=== PATIENT | male | born 1940 | race Caucasian/White ===

== ENCOUNTER 2017-04-26 06:51 | Day surgery (SDC) | payer MEDICARE, BC ==
[~2017-04-26 06:51] MED LIST: ACETAMINOPHEN 1,000 MG/100 ML BTL IV ONE; CEFAZOLIN 1 Gram 1 GM/50 ML BAG IVPB ONE
[2017-04-26] MEDS ORDERED: MIDAZOLAM HCL 2MG/2ML VIAL IV ONE (06:52)
[2017-04-26] MEDS ORDERED: ONDANSETRON HCL IV 4 MG/2 ML VIAL IVP ONE (06:52)
[2017-04-26] MEDS ORDERED: EPHEDRINE SULFATE 50 MG/ML ML IV ONE (06:52)
[2017-04-26] MEDS ORDERED: PROPOFOL 10 MG/ML VIAL IV ONE (06:52)
[2017-04-26] MEDS ORDERED: METOCLOPRAMIDE HCL 10 MG/2 ML VIAL IVP ONE (06:52)
[2017-04-26] MEDS ORDERED: HYDROMORPHONE HCL 2 MG/ML VIAL IV ONE (06:52)
[2017-04-26] MEDS ORDERED: HYDROCODONE/APAP 5/325MG TABLET PO ONE (06:52)
[2017-04-26] MEDS ORDERED: BUPIVACAINE 0.75% W/EPI MPF 30ML VIAL IVP ONE (06:52)
[2017-04-26] MEDS ORDERED: LIDOCAINE 2% MDV (20MG/ML) 20ML VIAL IV ONE (06:52)
[2017-04-26 07:28] LABS: BASO % 0.6 % (0-6); EOS % 4.3 % (0-6); GRAN % 63.7 % (47-80); HEMATOCRIT 38.8 % (42.0-52.0); HEMOGLOBIN 12.5 gm/dl (14.0-18.0); LYMPH % 19.8 % (16-45); MEAN CELL VOLUME 87.8 fl (81-97); MEAN CORPUSCULAR HGB CONC 32.2 g/dl (32-36); MEAN PLATELET VOLUME 9.4 fl (7.4-10.4); MONO % 11.6 % (0-9); PLATELET COUNT 233 K/uL (130-400); RED BLOOD COUNT 4.42 M/uL (4.40-5.70); RED CELL DISTRIBUTION WIDTH 15.4 % (11.5-14.5); WHITE BLOOD COUNT W/O DIFF 7.2 K/uL (4.2-12.2)
[2017-04-26 07:29] LABS: MEAN CORPUSCULAR HEMOGLOBIN 28.2 pg (27-33)
[2017-04-26 07:35] LABS: BLOOD UREA NITROGEN 16 mg/dL (8-23); CREATININE 0.8 mg/dL (0.7-1.2); EST GLOMERULAR FILTRATION RATE > 60 mL/min; GLUCOSE,RANDOM 98 mg/dL (74-109)
--- NOTE | 2017-04-27 10:10 | Operative Note ---
DATE OF SURGERY: 04/26/2017 Surgeon: Gene Hilario DO PREOPERATIVE DIAGNOSIS: Reducible left inguinal hernia. POSTOPERATIVE DIAGNOSIS: Reducible left inguinal hernia, indirect with accompanying cord lipoma. OPERATION: Open left inguinal herniorrhaphy with mesh. PROCEDURE: The patient is a 68-year-old male who was brought to the operating room and placed in a supine position. General anesthesia was administered per the department of anesthesia. The patient's left inguinal region was shaved of hair and prepped and draped in a sterile fashion. At this time, adequate timeout was performed. He did receive preoperative antibiotics. At this time, the left inguinal region was anesthetized with a total of 10 mL of 0.25% Sensorcaine with epinephrine. A 4 cm oblique incision was made. This was carried down through the subcutaneous tissues through Cristina layer to the aponeurosis of the external oblique. A peter was made with a scalpel blade. This was enlarged through the superficial inguinal ring with Metzenbaum scissors. Care was taken not to injure the underlying ilioinguinal nerve or spermatic cord. At this time, superior and inferior flaps were developed and a Richmond was placed on the spermatic cord. This was dissected free from the underlying transversalis fascia and retracted laterally with a Kaleva drain. Floor was inspected and noted to be free of any direction herniation. Cremasteric fibers were taken down. There was a moderate size cord lipoma as well as indirect hernia sac. High ligations of each were done. At this time, a left-sided ProGrip mesh was obtained. This was placed in the floor of the inguinal canal with excellent overlap of the pubic tubercle. Sutures went at the level of the pubic tubercle, second portion of the inguinal ligament, and internal oblique aponeurosis. The lateral triangle was protected with the lateral aspect of the mesh. At this time, the aponeurosis was closed over the cord with 2-0 Vicryl, the Cristina layer was closed with 3-0 Vicryl, and skin was closed with 4-0 Vicryl. The patient was taken to the recovery room in satisfactory condition. FINDINGS AT THE TIME OF SURGERY: Left inguinal hernia, indirect with accompanying cord lipoma. CC: Dr. Scooter GRACIA
== END 2017-04-26 10:08 | disposition home or self-care (01) ==
LOC: SUR 06:51
PROVIDERS: ATTEND Surgery
DX: K40.90 Unilateral inguinal hernia, without obstruction or gangrene, not specified as recurrent (principal); E78.00 Pure hypercholesterolemia, unspecified; I10 Essential (primary) hypertension; D17.6 Benign lipomatous neoplasm of spermatic cord
CPT/HCPCS: 49505; 00830; 85025; 80048; J2405; J0690; J1170; J3490; J2765

== ENCOUNTER 2018-07-27 13:05 | Emergency (ER) | payer MEDICARE ==
[2018-07-27] MEDS ORDERED: ASPIRIN 81 MG CHEWABLE TABLET PO ONE (13:17)
[2018-07-27] MEDS ORDERED: MAGNESIUM HYDROXIDE/AL HYDROX 30 ML, LIDOCAINE VISC 2% 15ML 15 ML PO ONE ×2 (13:25)
--- NOTE | 2018-07-27 13:25 | Emergency Department Record ---
History of Present Illness - General Chief Complaint: Shortness of breath Stated Complaint: CHEST PRESSURE,JOB Time Seen by Provider: 07/27/18 13:16 Source: Patient, RN notes reviewed Mode of Arrival: Ambulatory - History of Present Illness Initial Comments: patient states couple of weeks of SOB and some chest pressure and thought to have constipation and took a laxative which cleaned him out but he still is SOB and some chest pressure. Onset/Timin -: Week(s) Consistency: Constant Improves With: Nothing Worsens With: Nothing Associated Symptoms: Denies other symptoms Treatments Prior to Arrival: None - Related Data Previous Rx's Medication Instructions Recorded Albuterol Sulfate [Proair Hfa] 1 - 2 puff IH .EVERY 4-6 HOURS PRN 07/27/18 #1 inhaler Allergies Allergy/AdvReac Type Severity Reaction Status Date / Time morphine AdvReac Severe hallucinati Verified 07/27/18 13:13 ons Travel Screening - Travel/Exposure Within Last 30 Days Have you traveled within the last 30 days?: No Review of Systems Reviewed: No additional complaints except as noted below Constitutional: Reports: As per HPI. Denies: Chills, Fever, Malaise, Night sweats, Weakness, Weight change Eyes: Reports: As per HPI. Denies: Eye discharge, Eye pain, Photophobia, Vision change ENT: Reports: As per HPI. Denies: Congestion, Dental pain, Ear pain, Epistaxis , Hearing loss, Throat pain Respiratory: Reports: As per HPI, Cough, Dyspnea. Denies: Hemoptysis, Stridor, Wheezes Cardiovascular: Reports: As per HPI, Chest pain. Denies: Arrhythmia, Dyspnea on exertion, Edema, Murmurs, Orthopnea, Palpitations, Paroxysmal nocturnal dyspnea, Rheumatic Fever, Syncope Endocrine: Reports: As per HPI. Denies: Fatigue, Heat or cold intolerance, Polydipsia, Polyuria Gastrointestinal: Reports: As per HPI. Denies: Abdominal pain, Constipation, Diarrhea, Hematemesis, Hematochezia, Melena, Nausea, Vomiting Genitourinary: Reports: As per HPI. Denies: Dysuria, Frequency, Hematuria, Incontinence, Retention, Testicular pain, Testicular mass, Urgency Musculoskeletal: Reports: As per HPI. Denies: Arthralgia, Back pain, Gout, Joint swelling, Myalgia, Neck pain Skin: Reports: As per HPI. Denies: Bruising, Change in color, Change in hair/ nails, Lesions, Pruritus, Rash Neurological: Reports: As per HPI. Denies: Abnormal gait, Confusion, Headache, Numbness, Paresthesias, Seizure, Tingling, Tremors, Vertigo, Weakness Psychiatric: Reports: As per HPI. Denies: Anxiety, Auditory hallucinations, Depression, Homicidal thoughts, Suicidal thoughts, Visual hallucinations Hematological/Lymphatic: Reports: As per HPI. 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) Hx Heart Attack: No Hx Hypertension: Yes (on metoprolol) Hx Coronary Artery Bypass Graft: Yes (quadruple bypass 2016) Hx Coronary Stent: Yes - NEURO Hx Neuro Disorders: No Hx Headaches: Yes - GI Hx GI Disorders: Yes Hx Diverticulitis: Yes Hx Reflux: Yes Hx Rectal Bleeding: Yes (occasional due to hemmorrhoids) Hx Ulcer: No - Hx Genitourinary Disorders: Yes Hx Prostate Problems: Yes (flomax-urinates alot at night) - ENDOCRINE Hx Endocrine Disorders: No - MUSCULOSKELETAL Hx Musculoskeletal Disorders: Yes Hx Arthritis: Yes - PSYCH Hx Psych Problems: No - HEMATOLOGY/ONCOLOGY Hx Hematology/Oncology Disorders: Yes Hx Cancer: Yes (skin left cheek) Family Medical History Any Significant Family History?: Yes Hx Alcohol Use: Mother Hx Cancer: Father *Cancer Comment: hodgkins Hx Liver Disease: Mother *Liver Comment: cirrhosis Physical Exam - General General Appearance: Alert, Oriented x3, Cooperative, No acute distress - Head Head exam: Normal inspection - Eye Eye exam: Normal appearance, PERRL Pupils: Normal accommodation - ENT ENT exam: Normal exam, Mucous membranes moist, Normal external ear exam, Normal orophraynx, TM's normal bilaterally Ear exam: Normal external inspection. negative: External canal tenderness Nasal Exam: Normal inspection. negative: Discharge, Sinus tenderness Mouth exam: Normal external inspection, Tongue normal Teeth exam: Normal inspection. negative: Dental caries Throat exam: Normal inspection. negative: Tonsillar erythema, Tonsillar exudate - Neck Neck exam: Normal inspection, Full ROM. negative: Tenderness - Respiratory Respiratory exam: Normal lung sounds bilaterally. negative: Respiratory distress - Cardiovascular Cardiovascular Exam: Regular rate, Normal rhythm, Normal heart sounds - GI/Abdominal GI/Abdominal exam: Soft, Normal bowel sounds. negative: Tenderness - Rectal Rectal exam: Deferred - exam: Deferred - Extremities Extremities exam: Normal inspection, Full ROM, Normal capillary refill. negative: Tenderness - Back Back exam: Reports: Normal inspection, Full ROM. Denies: Muscle spasm, Rash noted, Tenderness - Neurological Neurological exam: Alert, Normal gait, Oriented X3, Reflexes normal - Psychiatric Psychiatric exam: Normal affect, Normal mood - Skin Skin exam: Dry, Intact, Normal color, Warm Course second trop t ordered - Reevaluation(s) Reevaluation #1: chest xray negative 07/27/18 18:11 Medical Decision Making - Data Complexity MDM Data: Labs Ordered and/or Reviewed (trop t neg times one ), X-Ray Ordered and/or Reviewed (CTA of chest negative for PE,calcified granuloma of RLL , spleenic granuloma,coronary artery calcifications), EKG Ordered and/or Reviewed (nsr , no acute changes) - Lab Data Result diagrams: 07/27/18 13:15 07/27/18 13:15 Disposition Clinical Impression: SOB (shortness of breath) GERD (gastroesophageal reflux disease) Qualifiers: Esophagitis presence: with esophagitis Qualified Code(s): K21.0 - Gastro- esophageal reflux disease with esophagitis Disposition: Home, Self-Care Condition: (1) Good Instructions: Gastroesophageal Reflux Disease (ED) Additional Instructions: continue omeprazole 40 mg twice a day take mylanta 15 ml after meals and bedtime use inhaler 2 puffs every 4 hours Prescriptions: Albuterol Sulfate [Proair Hfa] 1 - 2 puff IH .EVERY 4-6 HOURS PRN #1 inhaler PRN Reason: Difficulty In Breathing Forms: Patient Portal Access Time of Disposition: 19:13 Quality - Quality Measures Quality Measures: N/A - Blood Pressure Screening Does Patient Have Any of the Following: No Blood Pressure Classification: Pre-Hypertensive BP Reading Systolic Measurement: 126 Diastolic Measurement: 78 Screening for High Blood Pressure: < Pre-Hypertensive BP, F/U Documented > [ [id number]] Pre-Hypertensive Follow-up Interventions: Referral to alternative/primary care provider.
[2018-07-27 13:50] LABS: HEMATOCRIT 40.9 % (42.0-52.0); HEMOGLOBIN 13.6 gm/dl (14.0-18.0); MEAN CELL VOLUME 91.1 fl (81-97); MEAN CORPUSCULAR HGB CONC 33.3 g/dl (32-36); MEAN PLATELET VOLUME 10.2 fl (7.4-10.4); PLATELET COUNT 210 K/uL (130-400); RED BLOOD COUNT 4.49 M/uL (4.40-5.70); RED CELL DISTRIBUTION WIDTH 15.3 % (11.5-14.5); WHITE BLOOD COUNT W/O DIFF 6.4 K/uL (4.2-12.2)
[2018-07-27 13:51] LABS: MEAN CORPUSCULAR HEMOGLOBIN 30.2 pg (27-33)
[2018-07-27 13:59] LABS: BLOOD UREA NITROGEN 15 mg/dL (8-23); CREATININE 0.9 mg/dL (0.7-1.2); EST GLOMERULAR FILTRATION RATE > 60 mL/min
[2018-07-27 14:02] LABS: GLUCOSE,RANDOM 138 mg/dL (74-109)
== END 2018-07-27 19:22 | disposition home or self-care (01) ==
LOC: ER 13:05
DX: K21.0 Gastro-esophageal reflux disease with esophagitis (principal); R06.02 Shortness of breath; R07.89 Other chest pain; R79.89 Other specified abnormal findings of blood chemistry; I10 Essential (primary) hypertension; Z87.891 Personal history of nicotine dependence; Z95.1 Presence of aortocoronary bypass graft
CPT/HCPCS: 99284 ×2; 85730; 80048; 84484; 85379; 85027; 71046; 71275; 93005; 93010; Q9967

== ENCOUNTER 2018-08-22 09:31 | Day surgery (SDC) | payer MEDICARE ==
[2018-08-22] MEDS ORDERED: PROPOFOL 10 MG/ML VIAL IV ONE (09:32)
[2018-08-22] MEDS ORDERED: LIDOCAINE 2% MDV (20MG/ML) 20ML VIAL IV ONE (09:32)
[2018-08-22] MEDS ORDERED: FENTANYL PF 100MCG/2ML VIAL IV ONE (09:32)
--- NOTE | 2018-08-23 08:31 | Operative Note ---
DATE OF SURGERY: 08/22/2018 OPERATION: ESOPHAGOGASTRODUODENOSCOPY. INDICATION: Recurring shortness of breath. The patient states that belching tends to improve his symptoms. There is a question of possible acid reflux disease or hiatal hernia. Upper endoscopy is performed at this time for further evaluation. ANESTHESIA: Intravenous sedation was administered by the department of anesthesiology and included Diprivan titrated to effect. PROCEDURE: Following informed consent from this alert individual, including a discussion of the risks and benefits of the procedure and an opportunity for the patient to ask questions, the patient was in the left lateral decubitus position. The Olympus [id number] video endoscope was inserted into the esophagus without resistance. The proximal esophagus had a normal appearance with normal folds and distensibility. The squamocolumnar junction was smooth, well defined, and approximated the diaphragmatic hiatus. The stomach was entered and found to be normal. The pylorus was patent. The duodenal bulb, sweep and descending duodenum were examined in a serial fashion and found to be normal as well. The endoscope was then drawn back into the body of the stomach. Retroflexion accomplished following air insufflation failed to demonstrate any changes. There was no hiatal hernia. The endoscope was straightened and removed through a normal esophagus and withdrawn from the patient. He tolerated the procedure well and was returned to the recovery area in stable condition. IMPRESSION: Normal esophagogastroduodenoscopy. RECOMMENDATION: The patient will be following up with his primary care team and Cardiology. As always, thank you for allowing me to participate in the care of your patient. CC: DO SAMIA Wetzel
== END 2018-08-22 11:45 | disposition home or self-care (01) ==
LOC: HOP 09:31
PROVIDERS: ATTEND Internal Medicine Gastroenterology
DX: R06.02 Shortness of breath (principal); I10 Essential (primary) hypertension; E78.00 Pure hypercholesterolemia, unspecified; M19.90 Unspecified osteoarthritis, unspecified site
CPT/HCPCS: 43235; 00731; J3010